=== PATIENT | female | born 1950 | race Caucasian/White ===

== ENCOUNTER 2016-08-11 21:37 | Inpatient (IN) ==
[2016-08-11 21:55] LABS: Basophils % 0.4 %; Eosinophils % 0.4 %; Hematocrit 37.7 % (35.3-44.9); Hemoglobin 12.1 g/dL (11.5-15.4); Immature Granulocytes % 0.5 % (0-4); Lymphocytes # 0.8 K/mcL (0.6-4.6); Mean Corpuscular HGB Conc 32.1 g/dL (31.6-35.5); Mean Corpuscular Hemoglobin 26.7 pg (28.0-33.3); Mean Corpuscular Volume 83.2 fL (83.0-100.0); Mean Platelet Volume 10.4 fL (9.4-12.4); Monocytes # 0.9 K/mcL (0.0-1.3); Monocytes % 8.2 %; Neutrophils # 8.7 K/mcL (1.6-8.9); Platelet Count 216 K/mcL (140-400); Red Blood Count 4.53 M/mcL (3.82-4.97); Red Cell Distribution Width 14.8 % (11.5-14.5); Segmented Neutrophils % 82.5 %
[2016-08-11 22:02] LABS: INR 1.2
[2016-08-11 22:04] LABS: Activated Partial Thrombo Time 30.9 Seconds (26.0-36.0)
[2016-08-11 22:14] LABS: Alanine Aminotransferase 9 Units/L (0-55); Albumin 3.2 g/dL (3.5-5.0); Albumin/Globulin Ratio 1.2 (1.1-2.2); Alkaline Phosphatase 77 Units/L (38-126); Aspartate Amino Transferase 14 Units/L (5-34); BUN/Creatinine Ratio 22 (6-26); Bilirubin,Total 0.7 mg/dL (0.2-1.2); Blood Urea Nitrogen 16 mg/dL (7-20); Calcium 9.3 mg/dL (8.6-10.8); Carbon Dioxide 28 mEq/L (19-29); Chloride 98 mEq/L (98-109); Globulin 2.6 g/dL (2.4-3.5); Glucose 120 mg/dL (70-99); Osmolality,Calculated 280 (280-300); Potassium 4.3 mEq/L (3.5-4.5); Sodium 134 mEq/L (136-145); Total Protein 5.8 g/dL (6.0-8.3); eGFR For African Americans > 60 (> 60); eGFR For Non-African Americans > 60 (> 60)
[2016-08-11] MEDS ORDERED: Ketorolac 30 MG/ML VIAL IVP ONE (22:44)
--- NOTE | 2016-08-11 22:56 | Emergency Department Note ---
Disposition Clinical Impression: Intertrochanteric fracture of left femur Qualifiers: Encounter type: initial encounter Fracture type: closed Qualified Code(s): S72.142A - Displaced intertrochanteric fracture of left femur, initial encounter for closed fracture Chronic respiratory failure Qualifiers: Respiratory failure complication: hypoxia and hypercapnia Qualified Code(s): J96.11 - Chronic respiratory failure with hypoxia; J96.12 - Chronic respiratory failure with hypercapnia Disposition: Admitted As Inpatient Condition: Fair Referrals: Franky Hackett MD [Primary Care Provider] - Forms: ED Satisfaction Letter Lower Extremity Injury HPI - General Chief Complaint: ED Extremity Injury, Lower Stated Complaint: left hip fx Time Seen by Provider: 08/11/16 21:38 Source: EMS Mode of arrival: EMS Limitations: language barrier Nursing Notes Reviewed: Yes Vital Signs Reviewed: Yes - History of Present Illness Pt Subjective Complaint: hip injury Injury location: Left hip Onset (ago): day(s) (1) Mechanism of Injury: fall Context: fall Place: home Pain Severity: moderate Improves with: nothing Worsens with: movement Associated symptoms: Reports: unable to bear weight - Related Data Home Medications Medication Instructions Recorded Confirmed Sertraline [Zoloft] 150 mg PO DAILY 12/07/15 04/11/16 Umeclidinium [place] [Incruse 1 puff IH DAILY 12/07/15 04/11/16 Ellipta] Albuterol Sulfate [Albuterol 1 puff IH Q4HR PRN 01/12/16 04/11/16 Inhaler] Acetylcysteine 600 mg PO BIDWM 02/04/16 04/11/16 [Q-Dzgfet-v-Cysteine] Aripiprazole [Abilify] 15 mg PO DAILY MDD Start 02-09-16. 02/04/16 04/11/16 Theophylline Anhydrous [Maximino-24] 100 mg PO DAILY 02/04/16 04/11/16 Previous Rx's Medication Instructions Recorded Budesonide/Formoterol 160/4.5 2 puff IH BIDR 30 Days 04/10/15 [Symbicort] Benztropine [Cogentin] 1 mg PO QID #120 tablet 05/22/15 Mirtazapine [Remeron] 15 mg PO HS #30 tablet 05/22/15 Montelukast [Singulair] 10 mg PO DAILY tablet 12/11/15 Omeprazole [PriLOSEC] 20 mg PO BIDAC capsule 12/11/15 Albuterol Neb [Proventil Neb] 2.5 mg IH Q2H PRN #0 inhsol 01/16/16 Ipratropium/Albuterol Neb [Duoneb] 3 ml IH [id number] inhsol 01/16/16 Aspirin 81 mg PO DAILY tab.chew 02/08/16 Atorvastatin [Lipitor] 40 mg PO HS #30 tablet 02/08/16 ClonazePAM [Klonopin] 1 mg PO TID PRN 30 Days 02/08/16 Metoprolol [Lopressor] 12.5 mg PO BID #30 tablet 02/08/16 Ipratropium/Albuterol Neb [Duoneb] 3 ml IH Q6HR PRN #30 vial.neb 03/29/16 Levofloxacin [Levaquin] 750 mg PO QDPC #3 tablet 04/18/16 Lisinopril [Zestril] 5 mg PO DAILY #30 tablet 04/18/16 OxyCODONE Immed Rel [Roxicodone 5 5 mg PO Q4HR PRN #30 tablet 04/18/16 MG] PredniSONE 40 mg PO AD #12 tablet 04/18/16 Allergies Allergy/AdvReac Type Severity Reaction Status Date / Time morphine Allergy Anaphylaxis Verified 01/12/16 11:22 All systems ED: reviewed and negative except as stated. 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 WORKER history: Reports: no SURVEY WORKER history, bilateral tubal ligation - Social History Smoking Status: Former smoker Smokeless Tobacco Status: No Alcohol use: Reports: none Drug use: Reports: none Physical Exam - General General appearance: alert, in no apparent distress - Head Head exam: atraumatic, normocephalic, normal inspection - Eye Eye exam: Present: normal appearance, PERRL, EOMI - ENT ENT exam: normal exam, normal oropharynx, mucous membranes moist - Neck Neck exam: Present: normal inspection, full ROM, trachea midline - Chest Chest inspection: Present: normal inspection, symmetric chest wall rise - Respiratory Respiratory exam: Present: prolonged expiratory phase. Absent: respiratory distress - Cardiovascular Cardiovascular exam: Present: regular rate, normal rhythm, normal heart sounds - Abdominal Exam Abdominal exam: Present: soft, Non-Tender. Absent: tenderness, distention, guarding, rebound, rigidity - Expanded Lower Extremity Exam Hip/Pelvis exam: Present: other (Patient tends to move left hip with significant pain) - Back Exam Back exam: Present: normal inspection, full ROM. Absent: tenderness - Neurological Exam Neurological exam: Present: alert, oriented X3 - Psychiatric Psychiatric exam: Present: normal affect, normal mood - Skin Skin exam: Present: warm Course Vital Signs Temperature 98.2 F 08/11/16 21:39 Pulse Rate 67 08/11/16 21:39 Respiratory Rate 16 08/11/16 21:39 Blood Pressure 111/48 08/11/16 21:39 O2 Sat by Pulse Oximetry 98 08/11/16 21:39 Temperature 98.2 F 08/11/16 21:39 Pulse Rate 67 08/11/16 21:39 Respiratory Rate 16 08/11/16 21:39 Blood Pressure 111/48 08/11/16 21:39 O2 Sat by Pulse Oximetry 98 08/11/16 21:39 Oxygen Delivery Oxygen Delivery Room Air Extremity Injury, Lower - Differential Diagnosis Likely: sprain/strain, acute internal derangement of knee, fracture, puncture wound - Medical Records Medical records reviewed: Yes I reviewed the patient's medical records. - Lab Data Lab results reviewed: Yes I reviewed the patient's lab results. Result diagrams: 08/11/16 21:52 08/11/16 21:52 Lab Results 08/11/16 08/11/16 08/11/16 Range/Units 21:52 21:52 21:52 WBC 10.5 (4.3-11.1) K/mcL RBC 4.53 (3.82-4.97) M/mcL Hgb 12.1 (11.5-15.4) g/dL Hct 37.7 (35.3-44.9) % MCV 83.2 (83.0-100.0) fL MCH 26.7 L (28.0-33.3) pg MCHC 32.1 (31.6-35.5) g/dL RDW 14.8 H (11.5-14.5) % Plt Count 216 (140-400) K/mcL MPV 10.4 (9.4-12.4) fL Immature Gran % 0.5 (0-4) % Seg Neutrophils % 82.5 % Lymphocytes % 8.0 % Monocytes % 8.2 % Eosinophils % 0.4 % Basophils % 0.4 % Neutrophils # 8.7 (1.6-8.9) K/mcL Lymphocytes # 0.8 (0.6-4.6) K/mcL Monocytes # 0.9 (0.0-1.3) K/mcL Eosinophils # 0.0 (0.0-0.6) K/mcL Basophils # 0.0 (0.0-0.2) K/mcL PT 13.0 H (9.4-12.1) Seconds INR 1.2 APTT 30.9 (26.0-36.0) Seconds Sodium 134 L (136-145) mEq/L Potassium 4.3 (3.5-4.5) mEq/L Chloride 98 (98-109) mEq/L Carbon Dioxide 28 (19-29) mEq/L BUN 16 (7-20) mg/dL Creatinine 0.72 (0.57-1.11) mg/dL Est GFR ( Amer) > 60 (> 60) Est GFR (Non-Af Amer) > 60 (> 60) BUN/Creatinine Ratio 22 (6-26) Glucose 120 H (70-99) mg/dL Calculated Osmolality 280 (280-300) Calcium 9.3 (8.6-10.8) mg/dL Total Bilirubin 0.7 (0.2-1.2) mg/dL AST 14 (5-34) Units/L ALT 9 (0-55) Units/L Alkaline Phosphatase 77 (38-126) Units/L Troponin I (0-0.03) ng/mL Serum Total Protein 5.8 L (6.0-8.3) g/dL Albumin 3.2 L (3.5-5.0) g/dL Globulin 2.6 (2.4-3.5) g/dL Albumin/Globulin Ratio 1.2 (1.1-2.2) Blood Type Antibody Screen 08/11/16 08/11/16 Range/Units 21:52 21:52 WBC (4.3-11.1) K/mcL RBC (3.82-4.97) M/mcL Hgb (11.5-15.4) g/dL Hct (35.3-44.9) % MCV (83.0-100.0) fL MCH (28.0-33.3) pg MCHC (31.6-35.5) g/dL RDW (11.5-14.5) % Plt Count (140-400) K/mcL MPV (9.4-12.4) fL Immature Gran % (0-4) % Seg Neutrophils % % Lymphocytes % % Monocytes % % Eosinophils % % Basophils % % Neutrophils # (1.6-8.9) K/mcL Lymphocytes # (0.6-4.6) K/mcL Monocytes # (0.0-1.3) K/mcL Eosinophils # (0.0-0.6) K/mcL Basophils # (0.0-0.2) K/mcL PT (9.4-12.1) Seconds INR APTT (26.0-36.0) Seconds Sodium (136-145) mEq/L Potassium (3.5-4.5) mEq/L Chloride (98-109) mEq/L Carbon Dioxide (19-29) mEq/L BUN (7-20) mg/dL Creatinine (0.57-1.11) mg/dL Est GFR ( Amer) (> 60) Est GFR (Non-Af Amer) (> 60) BUN/Creatinine Ratio (6-26) Glucose (70-99) mg/dL Calculated Osmolality (280-300) Calcium (8.6-10.8) mg/dL Total Bilirubin (0.2-1.2) mg/dL AST (5-34) Units/L ALT (0-55) Units/L Alkaline Phosphatase (38-126) Units/L Troponin I 0.01 (0-0.03) ng/mL Serum Total Protein (6.0-8.3) g/dL Albumin (3.5-5.0) g/dL Globulin (2.4-3.5) g/dL Albumin/Globulin Ratio (1.1-2.2) Blood Type O NEGATIVE Antibody Screen NEGATIVE - Radiology Data Radiology results reviewed: Yes I reviewed the patient's radiology results.
[2016-08-12] MEDS ORDERED: *HR* HYDROmorphone (PF) 1 MG/ML SYRINGE IVP STA (00:19)
[2016-08-12] MEDS ORDERED: 0.9 % Sodium Chloride 1,000 ML IV ONE (00:23)
[2016-08-12] MEDS ORDERED: 0.9 % Sodium Chloride 1,000 ML ONE (00:26)
[2016-08-12] MEDS ORDERED: Ketorolac 15 MG/ML VIAL IVP PRN (03:54)
[2016-08-12] MEDS ORDERED: Naloxone 0.4 MG/ML INJ IVP PRN (03:54)
[2016-08-12] MEDS ORDERED: Albuterol 2.5 MG/3 ML NEBULIZER IH PRN (03:59)
[2016-08-12] MEDS ORDERED: 0.9 % Sodium Chloride 1,000 ML IVC SCH (04:00)
--- NOTE | 2016-08-12 04:08 | Internal Med History&Physical ---
Date of Encounter: 08/12/16 Time of Encounter: 04:02 Assessment and Plan (1) Intertrochanteric fracture of left femur Current visit: Yes Status: Acute 1. Pain control. 2. Consult Orthopedics. 3. Recommend delaying surgery until cardiac evaluation is complete. Pt has ischemic changes on EKG. Unable to obtain any history from patient whatsoever. Qualifiers: Encounter type: initial encounter Fracture type: closed Qualified Code(s) : S72.142A - Displaced intertrochanteric fracture of left femur, initial encounter for closed fracture (2) COPD (chronic obstructive pulmonary disease) Current visit: Yes Status: Chronic 1. No acute process. 2. Aerosols PRN. 3. Oxygen as needed. Qualifiers: COPD type: emphysema Emphysema type: panlobular Qualified Code(s): J43.1 - Panlobular emphysema (3) Encephalopathy Current visit: Yes Status: Chronic 1. Based upon limited history and records, this appears chronic. 2. Resume home meds as appropriate once verified. 3. Monitor closely and minimize mind altering medications. (4) Steroid long-term use Current visit: Yes Status: Acute 1. Unable able to verify chronic home use, but her med list notes prednisone. 2. Will start stress dose steroids and continue for now in anticipation of surgery. 3. Will need to wean off hydrocortisone once acute injury, surgery, hospitalization stabilizes. (5) DVT prophylaxis Current visit: Yes Status: Acute 1. Heparin SQ. Internal Medicine - H&P: HPI Chief complaint: s/p fall Admitted From: Emergency Dept Plans for Post Hospital Care: Transfer Half-Way Care History of present illness: Ms. Guerra is a 66 year old female who presents to the ER tonight after having had a fall and sustaining hip injury. Workup in the ER revealed patient to have a hip fracture on the left. She was subsequently admitted to hospitalist service with an orthopedic consult. Upon my assessment of the patient, I am unable to obtain any history of patient whatsoever. She is alert, confused, disoriented, and a little agitated at times. Because of her encephalopathic state, no further history could be obtained. I reviewed her old records and ER records today. She does have a history of psychiatric disorder, schizophrenia, and I also suspect she has some underlying dementia. I also reviewed her EKG, which shows significant ST depression and T-wave inversion inferiorly and anterolaterally. Patient does not appear to be having any chest pain, dyspnea, or any anginal equivalent. I asked her multiple times if she was having chest pain or difficulty breathing, and she was unable to answer me and just stared blankly for the most part. I reviewed her CODE STATUS at her ECF which is confirmed DNR CC arrest. Past Med Surg Social Fam HX - Past Medical History Source: old records reviewed, nursing notes reviewed Medical history: arthritis, asthma, COPD, dementia, GERD, hypertension, osteoporosis Psychiatric history: anxiety, bipolar, depression, schizophrenia, previous psychiatric hospitalization - Past Surgical History Surgical History: cataract, cholecystectomy - Social History Smoking Status: Former smoker Smokeless Tobacco Status: No Alcohol use: none Drug use: none Current living situation: F - Family History Father History Unknown: Yes Living Status: Hx Family Respiratory Disorders: Yes Hx Family Cancer: Yes (Lymph node) Mother History Unknown: Yes Living Status: Hx Family Cancer: Yes (Colon cancer) Internal Medicine - H&P: Meds Budesonide/Formoterol 160/4.5 [Symbicort] 2 puff IH BIDR 30 Days 04/10/15 [Rx] Benztropine [Cogentin] 1 mg PO QID #120 tablet 05/22/15 [Rx] Mirtazapine [Remeron] 15 mg PO HS #30 tablet 05/22/15 [Rx] Sertraline [Zoloft] 150 mg PO DAILY 12/07/15 [History] Umeclidinium [place] [Incruse Ellipta] 1 puff IH DAILY 12/07/15 [History] Montelukast [Singulair] 10 mg PO DAILY tablet 12/11/15 [Rx] Omeprazole [PriLOSEC] 20 mg PO BIDAC capsule 12/11/15 [Rx] Albuterol Sulfate [Albuterol Inhaler] 1 puff IH Q4HR PRN 01/12/16 [History] Albuterol Neb [Proventil Neb] 2.5 mg IH Q2H PRN #0 inhsol 01/16/16 [Rx] Ipratropium/Albuterol Neb [Duoneb] 3 ml IH [id number] inhsol 01/16/16 [Rx] Acetylcysteine [K-Pjhlgg-f-Cysteine] 600 mg PO BIDWM 02/04/16 [History] Aripiprazole [Abilify] 15 mg PO DAILY MDD Start 02-09-16. 02/04/16 [History] Theophylline Anhydrous [Maximino-24] 100 mg PO DAILY 02/04/16 [History] Aspirin 81 mg PO DAILY tab.chew 02/08/16 [Rx] Atorvastatin [Lipitor] 40 mg PO HS #30 tablet 02/08/16 [Rx] ClonazePAM [Klonopin] 1 mg PO TID PRN 30 Days 02/08/16 [Rx] Metoprolol [Lopressor] 12.5 mg PO BID #30 tablet 02/08/16 [Rx] Ipratropium/Albuterol Neb [Duoneb] 3 ml IH Q6HR PRN #30 vial.neb 03/29/16 [Rx] Levofloxacin [Levaquin] 750 mg PO QDPC #3 tablet 04/18/16 [Rx] Lisinopril [Zestril] 5 mg PO DAILY #30 tablet 04/18/16 [Rx] OxyCODONE Immed Rel [Roxicodone 5 MG] 5 mg PO Q4HR PRN #30 tablet 04/18/16 [Rx] PredniSONE 40 mg PO AD #12 tablet 04/18/16 [Rx] Allergies morphine Allergy (Verified 01/12/16 11:22) Anaphylaxis ROS unobtainable: due to mental status - Constitutional Vitals: Temp Pulse Resp BP Pulse Ox 98.4 F 77 15 110/50 97 08/12/16 01:17 08/12/16 01:17 08/12/16 01:17 08/12/16 01:17 08/12/16 01:36 General appearance: Present: A&O X 0, disheveled. Absent: cooperative, answers questions appropriately - Head Head exam: Present: atraumatic, normal inspection - Expanded Head Exam Head exam expanded: Absent: abrasion, contusion, general tenderness, hematoma - Eye Eye exam: Present: EOMI, normal appearance, PERRL. Absent: scleral icterus Pupils: Present: normal accommodation - ENT ENT exam: Present: mucous membranes dry, normal exam, normal oropharynx - Neck Neck exam general surgery: Present: full ROM, supple. Absent: lymphadenopathy, thyromegaly - Expanded Neck Exam Neck exam: Absent: carotid bruit - Respiratory Respiratory exam: Present: prolonged expiratory phase, wheezes. Absent: rales, respiratory distress, rhonchi - Cardiovascular Cardiovascular exam: Present: RRR, +S1, +S2. Absent: systolic murmur - GI/Abdominal GI/Abdominal exam: Present: normal bowel sounds, soft. Absent: hepatomegaly, mass, splenomegaly - Extremities Exam Extremities exam: Present: warm. Absent: calf tenderness, joint swelling - Back Exam Back exam: Present: normal inspection. Absent: CVA tenderness (L), CVA tenderness (R) - Neurological Exam Neurological exam: Present: alert, strengths equal and symetr throughout. Absent: oriented X3 - Psychiatric Psychiatric exam: Present: agitated, flat affect. Absent: anxious, depressed - Skin Skin exam: Present: dry, warm Internal Med - H&P Results - Labs CBC & Chem 7: 08/11/16 21:52 08/11/16 21:52 - EKG Data -: EKG Interpreted by Myself EKG shows normal: sinus rhythm - EKG Data Prior EKG available for review: yes When compared to previous EKG: there are significant changes EKG comments: 08/12/16 04:12 ST-T depression and flipped T waves inferiorly and anterolaterally
[2016-08-12 05:06] LABS: Basophils # 0.1 K/mcL (0.0-0.2); Basophils % 0.6 %; Eosinophils # 0.2 K/mcL (0.0-0.6); Hematocrit 35.3 % (35.3-44.9); Hemoglobin 11.2 g/dL (11.5-15.4); Immature Granulocytes % 0.5 % (0-4); Lymphocytes # 1.3 K/mcL (0.6-4.6); Lymphocytes % 15.2 %; Mean Corpuscular HGB Conc 31.7 g/dL (31.6-35.5); Mean Corpuscular Volume 85.1 fL (83.0-100.0); Mean Platelet Volume 10.8 fL (9.4-12.4); Monocytes # 0.8 K/mcL (0.0-1.3); Neutrophils # 6.2 K/mcL (1.6-8.9); Platelet Count 159 K/mcL (140-400); Red Blood Count 4.15 M/mcL (3.82-4.97); Red Cell Distribution Width 14.8 % (11.5-14.5); Segmented Neutrophils % 72.7 %
[2016-08-12 05:26] LABS: Alanine Aminotransferase 7 Units/L (0-55); Albumin 2.9 g/dL (3.5-5.0); Alkaline Phosphatase 73 Units/L (38-126); Aspartate Amino Transferase 14 Units/L (5-34); BUN/Creatinine Ratio 28 (6-26); Bilirubin,Total 0.6 mg/dL (0.2-1.2); Blood Urea Nitrogen 17 mg/dL (7-20); Calcium 9.2 mg/dL (8.6-10.8); Carbon Dioxide 21 mEq/L (19-29); Chloride 103 mEq/L (98-109); Globulin 2.9 g/dL (2.4-3.5); Glucose 92 mg/dL (70-99); Magnesium 1.5 mg/dL (1.6-2.6); Osmolality,Calculated 279 (280-300); Potassium 4.2 mEq/L (3.5-4.5); Sodium 134 mEq/L (136-145); Total Protein 5.8 g/dL (6.0-8.3); eGFR For African Americans > 60 (> 60); eGFR For Non-African Americans > 60 (> 60)
--- NOTE | 2016-08-12 06:52 | Orthopedic Consult Note ---
Date of Encounter: 08/12/16 Time of Encounter: 06:50 Assessment and Plan (1) Hip fracture, left Current Visit: Yes Status: Acute Myra is a 66 year old female with who sustained a left displaced intertrochanteric hip fracture. She was admitted to the hospitalist. At this point I was not able to communicate with family members or a chamber of commerce division manager though my recommendation will be for reduction and internal fixation of the hip in order to stabilize the proximal femur and provide pain control to help facilitate nursing care. The patient will require cardiac clearance and I spoke with the hospitalist who will place an order for a consult. I will be in touch with the power of criminal defense attorney later today to address the orthopedic issues. Keep her nothing by mouth at this point. Qualifiers: Qualified Code(s): S72.002A - Fracture of unspecified part of neck of left femur, initial encounter for closed fracture History of Present Illness HPI: Ms. Guerra is a 66 year old female who was admitted last night to the hospitalist after a fall. Sustained a left hip fracture. History is significantly limited due to her mental status which is confused. There are no caretakers or family members at the bedside. The patient does not have any general complaints. I could not obtain any history from the patient directly and therefore gleaned her history from the chart. She apparently does take prednisone and was started on stress dose by the hospitalist. She also had some ischemic changes on her EKG and hospitalist and ordered an echo. Past Med Surg Social Fam HX - Past Medical History Medical history: arthritis, asthma, COPD, dementia, GERD, hypertension, osteoporosis Psychiatric history: anxiety, bipolar, depression, schizophrenia, previous psychiatric hospitalization - Past Surgical History Surgical History: cataract, cholecystectomy - Social History Smoking Status: Former smoker Smokeless Tobacco Status: No Alcohol use: none Drug use: none - Family History Father History Unknown: Yes Living Status: Hx Family Respiratory Disorders: Yes Hx Family Cancer: Yes (Lymph node) Mother History Unknown: Yes Living Status: Hx Family Cancer: Yes (Colon cancer) Medications and Allergies Budesonide/Formoterol 160/4.5 [Symbicort] 2 puff IH BIDR 30 Days 04/10/15 [Rx] Benztropine [Cogentin] 1 mg PO QID #120 tablet 05/22/15 [Rx] Mirtazapine [Remeron] 15 mg PO HS #30 tablet 05/22/15 [Rx] Sertraline [Zoloft] 150 mg PO DAILY 12/07/15 [History] Umeclidinium [place] [Incruse Ellipta] 1 puff IH DAILY 12/07/15 [History] Montelukast [Singulair] 10 mg PO DAILY tablet 12/11/15 [Rx] Omeprazole [PriLOSEC] 20 mg PO BIDAC capsule 12/11/15 [Rx] Albuterol Sulfate [Albuterol Inhaler] 1 puff IH Q4HR PRN 01/12/16 [History] Albuterol Neb [Proventil Neb] 2.5 mg IH Q2H PRN #0 inhsol 01/16/16 [Rx] Ipratropium/Albuterol Neb [Duoneb] 3 ml IH [id number] inhsol 01/16/16 [Rx] Acetylcysteine [V-Enpjmk-a-Cysteine] 600 mg PO BIDWM 02/04/16 [History] Aripiprazole [Abilify] 15 mg PO DAILY MDD Start 02-09-16. 02/04/16 [History] Theophylline Anhydrous [Maximino-24] 100 mg PO DAILY 02/04/16 [History] Aspirin 81 mg PO DAILY tab.chew 02/08/16 [Rx] Atorvastatin [Lipitor] 40 mg PO HS #30 tablet 02/08/16 [Rx] ClonazePAM [Klonopin] 1 mg PO TID PRN 30 Days 02/08/16 [Rx] Metoprolol [Lopressor] 12.5 mg PO BID #30 tablet 02/08/16 [Rx] Ipratropium/Albuterol Neb [Duoneb] 3 ml IH Q6HR PRN #30 vial.neb 03/29/16 [Rx] Levofloxacin [Levaquin] 750 mg PO QDPC #3 tablet 04/18/16 [Rx] Lisinopril [Zestril] 5 mg PO DAILY #30 tablet 04/18/16 [Rx] OxyCODONE Immed Rel [Roxicodone 5 MG] 5 mg PO Q4HR PRN #30 tablet 04/18/16 [Rx] PredniSONE 40 mg PO AD #12 tablet 04/18/16 [Rx] Allergies morphine Allergy (Verified 01/12/16 11:22) Anaphylaxis ROS unobtainable: due to mental status Physical Exam - Constitutional Vitals: Temp Pulse Resp BP Pulse Ox 97.8 F 67 16 102/70 99 08/12/16 04:55 08/12/16 04:55 08/12/16 04:55 08/12/16 04:55 08/12/16 04:55 Constitutional -Vitals reviewed -The patient is well developed and well nourished. -Mood is pleasant. -The patient is well groomed. Psychiatric -The patient is fully alert and oriented x 3. Respiratory: -Respiratory effort normal Abdomen: -Soft abdomen -Non tender -Non distended: Left upper extremity: -No deformities. The overlying skin is intact. No obvious signs of acute trauma. -No tenderness to palpation throughout. -No significant pain with passive motion of the shoulder, elbow, wrist, and fingers within the limits of the bed. -Unable to perform a neurologic exam due to her mental status. -Radial pulse is present; Fingers have good capillary refill. Right upper extremity: -No deformities. The overlying skin is intact. No obvious signs of acute trauma. -No tenderness to palpation throughout. -No significant pain with passive motion of the shoulder, elbow, wrist, and fingers within the limits of the bed. -Unable to perform a neurologic exam due to her mental status. -Radial pulse is present; Fingers have good capillary refill. Left lower extremity: -Shortened. The overlying skin is intact. -Tenderness in the proximal thigh region. -Pain with any movement of the left lower extremity localized to the groin. -Unable to perform a neurologic exam due to her mental status. -Toes have good capillary refill. Right lower extremity: -No deformities. The overlying skin is intact. No obvious signs of acute trauma. -No tenderness to palpation throughout. -No pain with passive motion of the hip, knee, ankle, and toes within the limits of the bed. -No pain with axial loading of the thigh. -Unable to perform a neurologic exam due to her mental status. -Toes have good capillary refill. Results - Labs Result Diagrams: 08/12/16 04:46 08/12/16 04:46 Labs: Abnormal lab results Hgb 11.2 g/dL (11.5-15.4) L 08/12/16 04:46 MCH 27.0 pg (28.0-33.3) L 08/12/16 04:46 RDW 14.8 % (11.5-14.5) H 08/12/16 04:46 PT 13.0 Seconds (9.4-12.1) H 08/11/16 21:52 Sodium 134 mEq/L (136-145) L 08/12/16 04:46 BUN/Creatinine Ratio 28 (6-26) H 08/12/16 04:46 Calculated Osmolality 279 (280-300) L 08/12/16 04:46 Magnesium 1.5 mg/dL (1.6-2.6) L 08/12/16 04:46 Serum Total Protein 5.8 g/dL (6.0-8.3) L 08/12/16 04:46 Albumin 2.9 g/dL (3.5-5.0) L 08/12/16 04:46 Albumin/Globulin Ratio 1.0 (1.1-2.2) L 08/12/16 04:46 H & H 08/12/16 Range/Units 04:46 Hgb 11.2 L (11.5-15.4) g/dL Hct 35.3 (35.3-44.9) % All other labs normal. - Diagnostic results Hip x-ray: image reviewed (Left displaced proximal femoral fracture, extracapsular. ) Consult Discharge Plan - Plan Referrals: Franky Hackett MD [Primary Care Provider] -
[2016-08-12] MEDS ORDERED: *HR* Heparin 5,000 UNIT/ML VIAL SQ SCH (07:00)
[2016-08-12] MEDS: Budesonide/Formoterol 160/4.5 MDI IH SCH ×2 (08:00→19:48)
[2016-08-12] MEDS: Hydrocortisone Sodium Succ 100 MG/2 ML VIAL IVP SCH ×3 (08:55→23:28)
[2016-08-12] MEDS ORDERED: Aspirin 81 MG TAB.CHEW PO SCH (09:00)
--- NOTE | 2016-08-12 10:00 | Cardiology Consult Note ---
<Oir Hodge R - Last Filed: 08/12/16 10:13> Date of Encounter: 08/12/16 Time of Encounter: 09:57 Assessment and Plan (1) Pre-operative cardiovascular examination Current Visit: Yes Status: Acute Pre-operative cardiovascular risk stratification for surgery of left displaced intertrochanteric hip fracture. EKG reviewed--significant changes noted compared to prior. Diffuse ST depression and inversion noted. Pt is a poor historian, confused. Cannot risk stratify pt until echo is obtained given these new concerning EKG changes. Will evaluate for any new wall motion abnormalities. Previous echo 01/2016 showed preserved EF without wall motion abnormalities. Will continue to follow and make recommendations/risk stratify once echo results. (2) Abnormal EKG Current Visit: Yes Status: Acute Diffuse ST depression and T wave inversion noted. Pt denies chest pain. Troponins negative x 2. Check echo to evaluate for any wall motion abnormalities. Further recommendations to follow. Discussion w patient/family: The assessment and plan as outlined above was discussed with the patient and/or family members who expressed understanding and agreement. All questions were answered. Thank you for involving us in the care of your patient. Please call with any questions. I will discuss all the above with Dr. Romero and make changes as necessary. History of Present Illness Consult date: 08/12/16 Requesting physician: Lonny Kirkpatrick Consult reason: pre-op, EKG changes Chief complaint: fall, hip pain History of present illness: Ms. Guerra is a 66 year old female with PMH of COPD, asthma, GERD, HTN, anxiety , bipolar, schizophrenia that presented to the ER after having had a fall and sustaining hip injury. Workup in the ER revealed patient had a left hip fx. She was subsequently admitted to hospitalist service with an orthopedic consult. EKG shows significant ST depression and T-wave inversion inferiorly and anterolaterally compared to prior. Patient does not appear to be having any chest pain, dyspnea, or any anginal equivalent. CODE STATUS at her ECF is DNR CC arrest. Troponins have been negative x 2. Echo 01/2016 showed preserved EF of 60%, moderate diastolic dysfunction. Past Med Surg Social Fam HX - Past Medical History Medical history: arthritis, asthma, COPD, dementia, GERD, hypertension, osteoporosis Psychiatric history: anxiety, bipolar, depression, schizophrenia, previous psychiatric hospitalization - Past Surgical History Surgical History: cataract, cholecystectomy - Social History Smoking Status: Former smoker Smokeless Tobacco Status: No Alcohol use: none Drug use: none - Family History Father History Unknown: Yes Living Status: Hx Family Respiratory Disorders: Yes Hx Family Cancer: Yes (Lymph node) Mother History Unknown: Yes Living Status: Hx Family Cancer: Yes (Colon cancer) Medications and Allergies Budesonide/Formoterol 160/4.5 [Symbicort] 2 puff IH BIDR 30 Days 04/10/15 [Rx] Benztropine [Cogentin] 1 mg PO QID #120 tablet 05/22/15 [Rx] Mirtazapine [Remeron] 15 mg PO HS #30 tablet 05/22/15 [Rx] Sertraline [Zoloft] 150 mg PO DAILY 12/07/15 [History] Umeclidinium [place] [Incruse Ellipta] 62.5 mcg IH DAILY 12/07/15 [History] Montelukast [Singulair] 10 mg PO DAILY tablet 12/11/15 [Rx] Omeprazole [PriLOSEC] 20 mg PO BIDAC capsule 12/11/15 [Rx] Albuterol Sulfate [Albuterol Inhaler] 1 puff IH Q4HR PRN 01/12/16 [History] Albuterol Neb [Proventil Neb] 2.5 mg IH Q2H PRN #0 inhsol 01/16/16 [Rx] Acetylcysteine [W-Mmnlac-z-Cysteine] 600 mg PO BIDWM 02/04/16 [History] Aripiprazole [Abilify] 15 mg PO DAILY MDD Start 02-09-16. 02/04/16 [History] Aspirin 81 mg PO DAILY tab.chew 02/08/16 [Rx] Atorvastatin [Lipitor] 40 mg PO HS #30 tablet 02/08/16 [Rx] ClonazePAM [Klonopin] 1 mg PO TID PRN 30 Days 02/08/16 [Rx] Metoprolol [Lopressor] 12.5 mg PO BID #30 tablet 02/08/16 [Rx] Ipratropium/Albuterol Neb [Duoneb] 3 ml IH Q6HR PRN #30 vial.neb 03/29/16 [Rx] OxyCODONE Immed Rel [Roxicodone 5 MG] 5 mg PO Q4HR PRN #30 tablet 04/18/16 [Rx] Guaifenesin [Mucinex] 1,200 mg PO BID 08/12/16 [History] Lisinopril [Lisinopril] 2.5 mg PO DAILY 08/12/16 [History] Magnesium Hydroxide [Milk of Magnesia] 30 ml PO Q4H PRN 08/12/16 [History] PredniSONE [Spike] 5 mg PO DAILY 08/12/16 [History] Theophylline Anhydrous [Maximino-24] 300 mg PO DAILY 08/12/16 [History] Allergies morphine Allergy (Verified 01/12/16 11:22) Anaphylaxis All Systems Review: A 10-system review of systems was performed and is negative for pertinent findings except as documented above in the HPI. - Constitutional Constitutional: frequent falls - Cardiovascular Cardiovascular: dyspnea on exertion - Respiratory Respiratory: dyspnea Physical Examination Vital Signs, Last 4 Hours Temp Pulse Resp BP Pulse Ox 08/12/16 08:07 16 105/59 100 08/12/16 07:00 98.7 F 75 16 105/59 100 Vital Signs Temp Pulse Resp BP Pulse Ox 08/12/16 08:07 16 105/59 100 08/12/16 07:00 98.7 F 75 16 105/59 100 08/12/16 04:55 97.8 F 67 16 102/70 99 08/12/16 01:36 97 08/12/16 01:17 98.4 F 77 15 110/50 100 08/12/16 00:50 16 117/63 08/12/16 00:45 67 16 117/63 100 08/12/16 00:15 71 16 99/59 97 08/11/16 23:08 71 16 120/59 97 08/11/16 21:39 98.2 F 67 16 111/48 98 Intake and Output 08/11/16 08/12/16 08/12/16 23:59 07:59 15:59 Other: Weight 45.359 kg General: Conversant, No Apparent Distress HEENT: Atraumatic, Normocephaly, Mucus Membranes Moist Neck: No JVD, Normal carotid pulses Cardiac: Reg Rate and Rhythm, Normal S1 and S2, No Murmur Lungs: Normal Breath Sounds, No Wheeze, Rales, Rhonchi Neuro: Alert and responsive, No focal deficits noted Abdomen: Soft, Non-Tender Skin: No rashes noted on visualized skin Musculoskeletal: No Chest Wall Tenderness Extremities: No Clubbing, No Cyanosis, No Edema, Normal Pulses Results 08/12/16 04:46 08/12/16 04:46 Lab Results 08/12/16 08/12/16 08/12/16 04:46 04:46 04:46 WBC 8.5 Hgb 11.2 L Hct 35.3 Plt Count 159 Sodium 134 L Potassium 4.2 Chloride 103 Carbon Dioxide 21 BUN 17 Creatinine 0.61 Glucose 92 Calcium 9.2 Magnesium 1.5 L Total Bilirubin 0.6 AST 14 ALT 7 Alkaline Phosphatase 73 Troponin I 0.01 Short CBC 08/12/16 08/11/16 Range/Units 04:46 21:52 WBC 8.5 10.5 (4.3-11.1) K/mcL Hgb 11.2 L 12.1 (11.5-15.4) g/dL Hct 35.3 37.7 (35.3-44.9) % Plt Count 159 216 (140-400) K/mcL Neutrophils # 6.2 8.7 (1.6-8.9) K/mcL BMP 08/12/16 08/11/16 Range/Units 04:46 21:52 Sodium 134 L 134 L (136-145) mEq/L Potassium 4.2 4.3 (3.5-4.5) mEq/L Chloride 103 98 (98-109) mEq/L Carbon Dioxide 21 28 (19-29) mEq/L BUN 17 16 (7-20) mg/dL Creatinine 0.61 0.72 (0.57-1.11) mg/dL Glucose 92 120 H (70-99) mg/dL Calcium 9.2 9.3 (8.6-10.8) mg/dL Cardiac Enzymes 08/12/16 08/11/16 Range/Units 04:46 21:52 Troponin I 0.01 0.01 (0-0.03) ng/mL Liver Function 08/12/16 08/11/16 Range/Units 04:46 21:52 Total Bilirubin 0.6 0.7 (0.2-1.2) mg/dL AST 14 14 (5-34) Units/L ALT 7 9 (0-55) Units/L Alkaline Phosphatase 73 77 (38-126) Units/L Albumin 2.9 L 3.2 L (3.5-5.0) g/dL Impressions Chest X-Ray 08/11/16 21:39 IMPRESSION: No acute abnormality. D/ / Roosevelt Rider MD / Roosevelt Rider MD Interpreting Provider: Roosevelt Rider MD Hip X-Ray 08/11/16 21:58 IMPRESSION: Intertrochanteric left proximal femur fracture. D/ / 08/11/2016 22:52:26 Roosevelt Rider MD / [facility] Interpreting Provider: Roosevelt Rider MD Femur X-Ray 08/11/16 23:01 IMPRESSION: 1. Acute mildly displaced left intertrochanteric fracture. 2. The left femur diaphysis and distal metaphysis demonstrate no fracture. D/ / 08/12/2016 06:21:43 Hay Escalante MD / [facility] Interpreting Provider: Hay Escalante MD Active Medications Acetaminophen (Tylenol) 650 mg PO Q6HR PRN PRN Reason: Mild Pain (1-3) Stop: 02/11/17 03:55 Albuterol Sulfate (Proventil Neb) 2.5 mg IH Q2H PRN; Protocol PRN Reason: Dyspnea Stop: 02/11/17 04:00 Aspirin (Aspirin) 81 mg PO DAILY [facility] Stop: 02/11/17 09:01 Last Admin: 08/12/16 08:53 Dose: Not Given Budesonide/Formoterol Fumarate (Symbicort) 2 puff IH BIDR JOSELYN PRN Reason: Protocol Stop: 02/11/17 10:01 Last Admin: 08/12/16 08:00 Dose: 2 puff Docusate Sodium (Colace) 100 mg PO BID PRN PRN Reason: Constipation Stop: 02/11/17 03:55 Heparin Sodium (Porcine) (Heparin) 5,000 unit SQ Q12HCO [facility] Stop: 02/11/17 07:01 Last Admin: 08/12/16 06:00 Dose: 5,000 unit Hydrocortisone Sodium Succinate (Solu-Cortef) 100 mg IVP Q8HR JOSELYN Stop: 02/11/17 08:01 Last Admin: 08/12/16 08:55 Dose: 100 mg Hydromorphone HCl (Dilaudid) 0.5 mg IVP Q4HR PRN PRN Reason: Severe Pain (7-10) Stop: 02/11/17 03:55 Sodium Chloride (0.9 % Sodium Chloride) 1,000 mls @ 100 mls/hr IVC .Q10H JOSELYN Stop: 02/11/17 04:01 Last Admin: 08/12/16 04:59 Dose: 100 mls/hr Ketorolac Tromethamine (Toradol) 15 mg IVP Q6HR PRN PRN Reason: Moderate Pain (4-6) Stop: 08/17/16 03:55 Naloxone HCl (Narcan) 0.4 mg IVP Q2MIN PRN PRN Reason: Opioid Reversal Stop: 02/11/17 03:55 Thiamine HCl (Vitamin B-1) 200 mg PO DAILY [facility] Stop: 02/11/17 09:31 - EKG Interpretation EKG results cardiology: personally reviewed (T waves inversions and depressions noted throughout EKG.), other (24 hour tele AVG HR 72) Consult Discharge Plan - Plan Referrals: Franky Hackett MD [Primary Care Provider] - <Suhail Romero G - Last Filed: 08/12/16 12:22> Date of Encounter: 08/12/16 Assessment and Plan Discussion w patient/family: The assessment and plan as outlined above was discussed with the patient and/or family members who expressed understanding and agreement. All questions were answered. Thank you for involving us in the care of your patient. Please call with any questions. History of Present Illness History of present illness: Ms. Guerra is a 66 year old female All Systems Review: A 10-system review of systems was performed and is negative for pertinent findings except as documented above in the HPI. Physical Examination Vital Signs, Last 4 Hours Temp Pulse Resp BP Pulse Ox 08/12/16 10:38 98.8 F 81 16 95/58 98 Results 08/12/16 04:46 08/12/16 04:46 Lab Results 08/12/16 08/12/16 08/12/16 04:46 04:46 04:46 WBC 8.5 Hgb 11.2 L Hct 35.3 Plt Count 159 Sodium 134 L Potassium 4.2 Chloride 103 Carbon Dioxide 21 BUN 17 Creatinine 0.61 Glucose 92 Calcium 9.2 Magnesium 1.5 L Total Bilirubin 0.6 AST 14 ALT 7 Alkaline Phosphatase 73 Troponin I 0.01 08/12/16 10:45 WBC Hgb Hct Plt Count Sodium Potassium Chloride Carbon Dioxide BUN Creatinine Glucose Calcium Magnesium Total Bilirubin AST ALT Alkaline Phosphatase Troponin I 0.01 - Attending Attestation I examined this patient and my medical decision-making was reviewed with the CHUTE BUILDER/PA/Advanced Practice Nurse/Resident Physician. I agree with the documented findings, disposition and treatment plan as described except to the extent set forth below. Asked to see pt for pre op clearance for fractured hip Pt not very cooperative Denies any cp "nothing wrong with my heart" no prior history of cardiac problems VSS JVD: 6-7 cm Chest: clear CVS : no s3 EKG : diffuse EKG changes with T wave inversion cardiac enzymes neg will check echo EKG suggest possible underlying ischemia no symptoms if ECHO looks ok with no wall motion abnormality then will clear for semi urgent hip surgery understanding that there is moderate CV risk d/w patient Pt does not want hip surgery Thanks
[2016-08-12 10:08] LABS: Phosphorous 3.3 mg/dL (2.3-4.7)
[2016-08-12] MEDS ORDERED: Magnesium Sulfate 2 GM in D5% in Water 100 ML IV ONE (10:29)
--- NOTE | 2016-08-12 10:29 | Event Note ---
Date of Encounter: 08/12/16 Time of Encounter: 10:00 Patient seen and examined, history of chronic respiratory failure oxygen dependent on 3 L. Patient denies any chest pain. Vital signs stable. Appreciate cardiology input. May need repeat cardiac echo. May need to transfer to 2 N. or ICU after surgery. Close monitoring of electrolytes. Glucose monitoring for any EKG changes. Patient had abdominal discomfort. Check kub. Replace magnesium
[2016-08-12] MEDS: Thiamine (B-1) 100 MG TABLET PO SCH (11:59)
--- NOTE | 2016-08-12 12:41 | ECHO - Doppler Report ---
Echocardiogram Name: Myra Guerra Date of Study: 08/12/2016 Date: 1950 Ht: 60.0 in Medical Record#: [id number] Age: 66 Wt: 100.0 lb Gender: Female BSA: 1.39 Order #: [id number] Location: [facility] Room #: 3NE20 Reading Physician: Zak Stearns DO, PATTI, LILLY BERG Statistics Tutor: Ramez Monge RN Ordering Physician: Ori Hodge CNP Primary Physician: Franky Hackett MD Indications: Preoperative Cardiovascular Examination, EKG Changes Impressions: LVEF 60-65%. Normal LV chamber size, wall thickness and function. Mild left ventricular diastolic dysfunction. Normal right ventricular structure and function. Possible PFO with left to right shunt with color Doppler. No evidence of pulmonary hypertension. There is a small anterior pericardial effusion present. There is no echocardiographic evidence of tamponade. Recommend a repeat limited study in a few weeks to evaluate pericardial effusion. Agitated saline can be administered to evaluate interatrial septum at that time. Left Ventricular Wall Motion: Rest Echo Findings All wall segments showed normal motion. Findings: Study Quality * Technically adequate exam. ECG Findings * Normal sinus rhythm. Left Ventricle * LVEF 60-65%. * Normal LV chamber size, wall thickness and function. * Mild left ventricular diastolic dysfunction. Right Ventricle * Normal right ventricular structure and function. Left Atrium * Mild to moderately dilated left atrium. Right Atrium * Normal right atrial size. Interatrial Septum * Possible PFO with left to right shunt with color Doppler. Aortic Valve * Trileaflet aortic valve. * Mildly sclerotic aortic valve leaflets. * No aortic stenosis. * No aortic regurgitation. Mitral Valve * Normal mitral valve structure and function. * No mitral regurgitation. * No mitral stenosis. Tricuspid Valve * Normal tricuspid valve structure and function. * Trace tricuspid regurgitation. * No evidence of pulmonary hypertension. Pulmonic Valve * Normal pulmonic valve structure and function. * No pulmonic regurgitation. Aorta * Normally sized aortic root. Pericardium * There is a small anterior pericardial effusion present. * There is no echocardiographic evidence of tamponade. IVC * Normal IVC dimensions and inspiratory collapse. Pulmonary Artery * Normal visualized portions of the main pulmonary artery. History 02/05/2016 a Previous Echo was performed. Measurements: BP: 95/ 58 2D Normal Values RVIDd: 2.40 cm <2.7 cm IVSd: .70 cm 0.6 - 1.0 cm LVIDd: 4.50 cm 3.7 - 5.6 cm LVPWd: .70 cm 0.6 - 1.1 cm LVIDs: 2.70 cm 1.5 - 3.6 cm LA: 3.00 cm 2.0 - 4.0cm %FS: 40.00 cm >25 % LVOT Diam: 1.60 cm LA volume: 66 Mitral Valve Peak E:.89 m/sec Peak A:.78 m/sec E/A Ratio:1.1 Peak E' Lat Kalia:7.6 cm/s Peak E' Med Kalia:8.77 cm/s E/E' Lat Ratio:11.8 E/E' Med Ratio:10.2 Tricuspid Valve TV Regurg Peak Grad: 25.00mmHg TV Regurg Peak Kalia: 2.51m/sec Updated by Zak Stearns DO, PATTI, LILLY BERG on 08/12/2016 12:36:14 PM electronically signed on 08/12/2016 12:38:07 PM with status of Final Wall Motion Carlin: 1=Normal, 2=Hypokinesis, 3=Akinesis, 4=Dyskinesis, 5=Aneurysmal, 6=Hyperkinetic, X=Not Visualized (Blank)=Missing
--- NOTE | 2016-08-12 12:52 | Event Note ---
Date of Encounter: 08/12/16 Time of Encounter: 12:50 - Cardiology Event Note Echo resulted--EF preserved 60-65%, no wall motion abnormalities noted. Mild diastolic dysfunction. There was a possible PFO left to right shunting with color doppler. Small anterior pericardial effusion without evidence of tamponade. Recommend limited echo in 2-3 weeks to re-evaluate pericardial effusion. No further cardiac work-up necessary. Pt is acceptable moderate risk from a cardiac standpoint to proceed with hip surgery. Cardiology signing off. Reconsult PRN.
[2016-08-12] MEDS ORDERED: 0.9 % Sodium Chloride 250 ML IVC SCH (15:01)
[2016-08-12] MEDS ORDERED: 0.9 % Sodium Chloride 250 ML ONE (15:11)
[2016-08-12] MEDS: 0.9 % Sodium Chloride 250 ML IVC ONE ×2 (15:13→15:48)
--- NOTE | 2016-08-12 15:23 | Anesthesia Evaluation PreOp ---
Date of Encounter: 08/12/16 Time of Encounter: 15:21 - Past History Planned Operation: L-Hip IM Nail re: intertrochanteric femur Fx Cardiac History: HTN (maintained on Lisinopril), Other (ECHO 08/11/16 - LVEF 60- 65%, Normal LV size/Fx, Mild LV diastolic dysfx, No evidence of PulmHtn, No SWMA ) Pulmonary History: Asthma, COPD (steroid dependent ?? maintained on Symbicort, Singulair, Albuterol, Proventil, DuoNeb, Theophylline, Incruse Ellipta, Prednisone) EXPRESSIVE ART THERAPIST History: Other (Psychiatric disorder/BiPolar/Schizophrenia/Dementia maintained on Clonazepam, Cogentin, Remeron, Abilify. Encephalopathic upon Admission [per H&P]) Other Medical History: GERD (maintained on Omeprazole), Other (Osteoporosis) Anesthesia History: Past Anesthesia (Cataracts, Cholecystectomy) Alcohol Use: none Drug use: none Medications and Allergies Budesonide/Formoterol 160/4.5 [Symbicort] 2 puff IH BIDR 30 Days 04/10/15 [Rx] Benztropine [Cogentin] 1 mg PO QID #120 tablet 05/22/15 [Rx] Mirtazapine [Remeron] 15 mg PO HS #30 tablet 05/22/15 [Rx] Sertraline [Zoloft] 150 mg PO DAILY 12/07/15 [History] Umeclidinium [place] [Incruse Ellipta] 62.5 mcg IH DAILY 12/07/15 [History] Montelukast [Singulair] 10 mg PO DAILY tablet 12/11/15 [Rx] Omeprazole [PriLOSEC] 20 mg PO BIDAC capsule 12/11/15 [Rx] Albuterol Sulfate [Albuterol Inhaler] 1 puff IH Q4HR PRN 01/12/16 [History] Albuterol Neb [Proventil Neb] 2.5 mg IH Q2H PRN #0 inhsol 01/16/16 [Rx] Acetylcysteine [O-Bevcci-a-Cysteine] 600 mg PO BIDWM 02/04/16 [History] Aripiprazole [Abilify] 15 mg PO DAILY MDD Start 02-09-16. 02/04/16 [History] Aspirin 81 mg PO DAILY tab.chew 02/08/16 [Rx] Atorvastatin [Lipitor] 40 mg PO HS #30 tablet 02/08/16 [Rx] ClonazePAM [Klonopin] 1 mg PO TID PRN 30 Days 02/08/16 [Rx] Metoprolol [Lopressor] 12.5 mg PO BID #30 tablet 02/08/16 [Rx] Ipratropium/Albuterol Neb [Duoneb] 3 ml IH Q6HR PRN #30 vial.neb 03/29/16 [Rx] OxyCODONE Immed Rel [Roxicodone 5 MG] 5 mg PO Q4HR PRN #30 tablet 04/18/16 [Rx] Guaifenesin [Mucinex] 1,200 mg PO BID 08/12/16 [History] Lisinopril [Lisinopril] 2.5 mg PO DAILY 08/12/16 [History] Magnesium Hydroxide [Milk of Magnesia] 30 ml PO Q4H PRN 08/12/16 [History] PredniSONE [Spike] 5 mg PO DAILY 08/12/16 [History] Theophylline Anhydrous [Maximino-24] 300 mg PO DAILY 08/12/16 [History] Allergies morphine Allergy (Verified 01/12/16 11:22) Anaphylaxis - Meds/Allergy Pre-op Review Medications Reviewed: Yes Allergies Reviewed: Yes Beta Blockers on Current Med List: Yes (Metoprolol) If Beta Blockers taken, Date/Time (Last Dose taken): held 08/12/16 for Hypotension Anesthesia Results - Labs 08/12/16 04:46 08/12/16 04:46 Laboratory Results Laboratory Tests 08/11/16 08/12/16 21:52 04:46 PT 13.0 H INR 1.2 APTT 30.9 Sodium 134 L Potassium 4.2 Chloride 103 Carbon Dioxide 21 BUN 17 Creatinine 0.61 Est GFR (Non-Af Amer) > 60 BUN/Creatinine Ratio 28 H Glucose 92 AST 14 ALT 7 Alkaline Phosphatase 73 Serum Total Protein 5.8 L Albumin 2.9 L Globulin 2.9 Albumin/Globulin Ratio 1.0 L Impressions Chest X-Ray 08/11/16 21:39 IMPRESSION: No acute abnormality. D/ / Roosevelt Rider MD / Roosevelt Rider MD Interpreting Provider: Roosevelt Rider MD Hip X-Ray 08/11/16 21:58 IMPRESSION: Intertrochanteric left proximal femur fracture. D/ / 08/11/2016 22:52:26 Roosevelt Rider MD / [facility] Interpreting Provider: Roosevelt Rider MD Femur X-Ray 08/11/16 23:01 IMPRESSION: 1. Acute mildly displaced left intertrochanteric fracture. 2. The left femur diaphysis and distal metaphysis demonstrate no fracture. D/ / 08/12/2016 06:21:43 Hay Escalante MD / [facility] Interpreting Provider: Hya Escalante MD - Imaging EKG: image reviewed (Admisson EKG not present in EMR, but per Cardiology noted to have diffuse ST depression and T wave inversion. Troponins NEGATIVE x 2) Anesthesia Exam Vital Signs Temp Pulse Resp BP Pulse Ox 08/12/16 10:38 98.8 F 81 16 95/58 98 08/12/16 08:07 16 105/59 100 08/12/16 07:00 98.7 F 75 16 105/59 100 08/12/16 04:55 97.8 F 67 16 102/70 99 08/12/16 01:36 97 08/12/16 01:17 98.4 F 77 15 110/50 100 08/12/16 00:50 16 117/63 08/12/16 00:45 67 16 117/63 100 08/12/16 00:15 71 16 99/59 97 08/11/16 23:08 71 16 120/59 97 08/11/16 21:39 98.2 F 67 16 111/48 98 Intake and Output 08/11/16 08/12/16 08/12/16 23:59 07:59 15:59 Output Total 600 / 600 Balance -600 / -600 Output: Catheter 600 / 600 Other: Weight 45.359 kg Height: 5' Weight: 100# BMI = 19.5 NPO (# of Hours): MNoc - HEENT Pupil (Motor): Pupils equal, EOMI Mallampati: II Teeth: Edentulous Oral Opening: Greater than 3 - EXPRESSIVE ART THERAPIST LOC: Oriented, Confused EXPRESSIVE ART THERAPIST Motor: Normal RUE, Normal LUE, Normal RLE, Normal Face, Deficit LLE EXPRESSIVE ART THERAPIST Sensory: Normal: RUE, LUE, RLE, Face, Deficit: LLE - Cardiac Rhythm: Regular Murmur: None - Pulmonary Breath Sounds: bilateral Rales, bilateral Rhonchi Respiratory Effort: Symmetrical Anesthesia Assess/Plan ASA Score: 4 (Schizophrenia/Psychiatric disorders, Steroid dependent COPD, HTN) Modified [place] Scale for Level of Consciousness: Cooperative, oriented, and tranquil Anesthetic Plan: General Monitoring Plan: Standard Monitors Recovery Plan: PACU Anes Supervising Prov Stmt: Pt seen/evaluated, R&B Discussed, questions answered and consent obtained. Bobby Diop MD
[2016-08-12] MEDS ORDERED: *HR* Propofol 200 MG/20 ML VIAL IVP ONE (16:06)
[2016-08-12] MEDS ORDERED: *HR* FentaNYL (PF) 100 MCG/2 ML VIAL ONE (16:06)
[2016-08-12] MEDS ORDERED: *HR* Rocuronium Bromide 50 MG/5 ML VIAL ONE (16:07)
[2016-08-12] MEDS ORDERED: Dexamethasone 4 MG/ML VIAL ONE (16:07)
[2016-08-12] MEDS ORDERED: *HR* Midazolam HCl 2 MG/2 ML VIAL ONE (16:07)
[2016-08-12] MEDS ORDERED: Lidocaine -MPF 4% 5 ML AMPUL ONE (16:07)
[2016-08-12] MEDS ORDERED: Ondansetron 4 MG/2 ML VIAL ONE (16:07)
[2016-08-12] MEDS ORDERED: Lidocaine -MPF 2% 2 ML VIAL ONE (16:07)
--- NOTE | 2016-08-12 16:08 | Electrocardiograph Report ---
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
[2016-08-12] MEDS: Ipratropium/Albuterol Neb 3 ML IH SCH ×3 (16:58→23:03)
--- NOTE | 2016-08-12 17:11 | Electrocardiograph Report ---
[address] [place], [place] [address] Test Date: 2016-08-12 Pat Name: Myra Guerra Department: 114 Room: [facility] Gender: F Rn Social Work: : 1950 Requested By: Lonny Kirkpatrick Order Number: [id number] Reading MD: Irasema Rodrigez Measurements Intervals [place] Rate: 74 P: 80 MN: 154 QRS: -63 QRSD: 89 T: -85 QT: 401 QTc: 429 Interpretive Statements SINUS RHYTHM MARKED LEFT AXIS DEVIATION LOW QRS VOLTAGE IN EXTREMITY LEADS POSSIBLE ANTERIOR MYOCARDIAL INFARCTION, OF INDETERMINATE AGE MODERATE T-WAVE ABNORMALITY, CONSIDER LATERAL ISCHEMIA MODERATE T-WAVE ABNORMALITY, CONSIDER INFERIOR ISCHEMIA Electronically Signed On 08-12-2016 17:09:21 EST by Irasema Rodrigez
[2016-08-12] MEDS ORDERED: Neostigmine Methylsulfate 3 MG/3 ML SYRINGE ONE (17:17)
[2016-08-12] MEDS ORDERED: *HR* Labetalol 100 MG/20 ML MDV IVP PRN (17:20)
[2016-08-12] MEDS ORDERED: *HR* HYDROmorphone (PF) 1 MG/ML SYRINGE IVP PRN (17:20)
[2016-08-12] MEDS ORDERED: Ondansetron 4 MG/2 ML VIAL IVP ONE (17:20)
--- NOTE | 2016-08-12 18:25 | Orthopedic Operative Note ---
Date of procedure: 08/12/16 Procedure: OPERATIVE REPORT DATE OF PROCEDURE: 08/12/2016 SURGEON: Jax Ladd MD [employer] SUPERVISOR(S): There were no assistants PREOPERATIVE DIAGNOSIS: Left intertrochanteric hip fracture POSTOPERATIVE DIAGNOSIS: Left intertrochanteric hip fracture PROCEDURE: Closed reduction and medullary nailing of the left intertrochanteric hip fracture ANESTHESIA: General anesthesia PREOPERATIVE ANTIBIOTICS: 2 g of Ancef ESTIMATED BLOOD LOSS: 200 milliliters IMPLANTS: Wells gamma 3 long medullary nail, 125 degrees, 360 mm in length, 13 mm in diameter, with a 90 mm lag screw LOCAL INJECTION: None PREOPERATIVE NOTE AND INDICATIONS: Myra is a 66-year-old female who sustained a left displaced proximal femur fracture. The recommendation was for reduction and medullary nailing in order to stabilize the proximal femur, provide pain control, and facilitate nursing care. The surgical plan was discussed with the patient's brother who is the power of trust and estates attorney. The risks, benefits, alternatives, and potential complications of this procedure were discussed with the patient including injury to veins, arteries, nerves, tendons, ligaments, and bone. Also discussed were the risks of infection, bleeding, pain, blood clots, the possible need for a blood transfusion, the possible need for further procedures, heart attack, stroke, and . All of this was explained in simple terms, and the patient's brother verbalized understanding and wished to proceed. Consent was given to proceed with surgery. PROCEDURE: The patient was seen in the preoperative holding area where the identify and the consent were confirmed. The left thigh was marked. Final questions were answered. The patient was brought back to the operating room and placed supine on the operating room table. A huddle was performed with the patient and all vital surgical team members confirming patient identity, the correct procedure, and the correct operative site. And general anesthesia was administered. The patient was placed on the fracture table and the nonoperative leg was flexed, abducted, and rotated out of the way. Traction was placed as well as internal rotation on the left lower extremity and x-rays confirmed good reduction. The left lower extremity was prepped and draped in the usual sterile fashion. A surgical time out was performed immediately preceding the incision with all personnel in the operating room to confirm patient identity, the correct operative site and extremity, correct radiographic studies, availability of appropriate surgical equipment, and agreement on the planned procedure. A longitudinal incision was made and dissection proceeded through the subcutaneous tissue down to the gluteal fascia which was opened. The patient was placed on the proximal femur and driven in to the greater trochanter. The opening reamer was used. The ball-tipped guidewire was placed on the shaft of the femur and confirmed to be in good position by x-ray. The length was measured. Reaming began with a 9 mm reamer and progressed sequentially in half millimeter increments up to a 14-1/2 mm. The definitive nail was then placed in the femur but would only go half way down. It was taken out and a 15 mm reamer was passed. The definitive nail was then placed easily into the shaft of the femur. A guidewire was placed into the femoral head through the nail. The length was measured and then the reamer was ran over the guidewire. The definitive lag screw was placed and compression mode used. The locking mechanism was dynamized. X-rays confirmed good position of the hardware. 2 distal locking screws were placed in perfect [place] technique. The wounds were copiously irrigated and the deep layers closed with 0 Vicryl stitches. The skin was closed with 3-0 Vicryl followed by blaine. Sterile dressings were placed. The patient was taken off the traction table and tolerated the procedure well. The instrument, sponge, and needle counts were correct after wound closure. POST OPERATIVE PLAN: Weight Bearing: As tolerated DVT Prophylaxis: Aspirin 325 mg by mouth twice a day Activity: As tolerated with assistance Wound Care: Daily dressing changes after postoperative day 2 Pain Control: Per the primary team Perioperative antibiotic prophylaxis: 2 doses of Ancef Social work for discharge planning Follow Up: 2 weeks
--- NOTE | 2016-08-12 18:56 | Anesthesia Evaluation Post Op ---
Date of Encounter: 08/12/16 Time of Encounter: 18:53 - Vital Signs Vital Signs: Vital Signs/O2 Sat, Most Current Temp Pulse Resp BP Pulse Ox 97.4 F L 92 16 126/84 98 08/12/16 18:45 08/12/16 18:45 08/12/16 18:45 08/12/16 18:45 08/12/16 18:45 - Lungs Lungs: Clear Ascult./Percussion - Airway Airway: Non-obstructed - Cardiovascular Regular Rate - Mental Status Mental Status: Confused, Asleep with brisk response to light stimulation - Pain Pain Scale used: Unable to assess - Nausea Vomiting Nausea Vomiting: Not Present - Hydration Hydration: NPO, Keith catheter - Discharge PostOp Status: Transfer Patient to floor
[2016-08-12] MEDS: ceFAZolin 2,000 MG in D5% in Water 100 ML IVPB SCH (23:28)
[2016-08-12] MEDS: Aspirin Enteric Coated 325 MG Tablet PO SCH ×2 (23:28→23:35)
[2016-08-13] MEDS: Ipratropium/Albuterol Neb 3 ML IH SCH ×6 (03:51→23:15)
[2016-08-13 04:07] LABS: Hematocrit 27.5 % (35.3-44.9)
[2016-08-13 04:13] LABS: Hemoglobin 8.7 g/dL (11.5-15.4)
[2016-08-13 04:19] LABS: BUN/Creatinine Ratio 35 (6-26); Blood Urea Nitrogen 19 mg/dL (7-20); Calcium 8.2 mg/dL (8.6-10.8); Carbon Dioxide 19 mEq/L (19-29); Chloride 105 mEq/L (98-109); Glucose 123 mg/dL (70-99); Osmolality,Calculated 282 (280-300); Potassium 4.2 mEq/L (3.5-4.5); Sodium 134 mEq/L (136-145); eGFR For African Americans > 60 (> 60); eGFR For Non-African Americans > 60 (> 60)
[2016-08-13] MEDS: Thiamine (B-1) 100 MG TABLET PO SCH (09:48)
[2016-08-13] MEDS: Hydrocortisone Sodium Succ 100 MG/2 ML VIAL IVP SCH ×2 (09:48→16:20)
[2016-08-13] MEDS: Aspirin Enteric Coated 325 MG Tablet PO SCH ×2 (09:48→21:39)
[2016-08-13] MEDS: ceFAZolin 2,000 MG in D5% in Water 100 ML IVPB SCH (09:58)
[2016-08-13] MEDS: Budesonide/Formoterol 160/4.5 MDI IH SCH ×2 (10:04→20:24)
[2016-08-13] MEDS: *HR* HYDROmorphone (PF) 1 MG/ML SYRINGE IVP PRN ×2 (11:53→16:18)
--- NOTE | 2016-08-13 14:00 | Orthopedics Progress Note ---
Date of Encounter: 08/13/16 Time of Encounter: 13:58 - Assessment and Plan (1) Intertrochanteric fracture of left femur Current Visit: Yes Status: Acute Postoperative day #1, stable Start OT and PT Continue DVT prophylaxis Qualifiers: Encounter type: initial encounter Fracture type: closed Qualified Code(s) : S72.142A - Displaced intertrochanteric fracture of left femur, initial encounter for closed fracture Subjective Principal diagnosis: Left hip fracture Interval history: Patient is postop day #1, complaining of mild pain Left hip dressing is clean dry intact Bilateral calves soft and nontender Objective Vital signs: Vital Signs Temp Pulse Resp BP Pulse Ox 08/13/16 11:54 104/75 08/13/16 10:05 20 95 08/13/16 06:52 98.4 F 95 16 106/72 96 08/13/16 04:32 98.1 F 82 16 104/69 93 L 08/12/16 19:49 16 100 08/12/16 19:11 98.6 F 87 16 93/61 100 08/12/16 18:55 88 16 110/70 97 08/12/16 18:45 97.4 F L 92 16 126/84 98 08/12/16 18:35 84 14 106/73 99 08/12/16 18:25 79 14 119/61 100 08/12/16 18:15 98.4 F 81 16 114/63 100 Intake and Output 08/12/16 08/13/16 08/13/16 23:59 07:59 15:59 Intake Total 100 / 100 600 / 600 Output Total 400 / 400 100 / 100 200 / 200 Balance -400 / -400 0 / 0 400 / 400 Intake: IV Fluids 100 / 100 Ancef 2,000 MG In 100 / 100 Dextrose 5% 100 ML @ 200 mls/hr IVPB Q8HR JOSELYN Rx#: [id number] Oral 600 / 600 Output: Urine 200 / 200 Estimated Blood Loss 200 / 200 Urine Amount (Catheter) 200 / 200 Catheter 100 / 100 Other: Meal Lunch Percent of Meal Consumed 50% Incision: clean and dry - Labs CBC & BMP: 08/13/16 03:37 08/13/16 03:37 Labs: Abnormal lab results Hgb 8.7 g/dL (11.5-15.4) L D 08/13/16 03:37 Hct 27.5 % (35.3-44.9) L 08/13/16 03:37 MCH 27.0 pg (28.0-33.3) L 08/12/16 04:46 RDW 14.8 % (11.5-14.5) H 08/12/16 04:46 PT 13.0 Seconds (9.4-12.1) H 08/11/16 21:52 Sodium 134 mEq/L (136-145) L 08/13/16 03:37 Creatinine 0.55 mg/dL (0.57-1.11) L 08/13/16 03:37 BUN/Creatinine Ratio 35 (6-26) H 08/13/16 03:37 Glucose 123 mg/dL (70-99) H 08/13/16 03:37 Calcium 8.2 mg/dL (8.6-10.8) L 08/13/16 03:37 Magnesium 1.5 mg/dL (1.6-2.6) L 08/12/16 04:46 Serum Total Protein 5.8 g/dL (6.0-8.3) L 08/12/16 04:46 Albumin 2.9 g/dL (3.5-5.0) L 08/12/16 04:46 Albumin/Globulin Ratio 1.0 (1.1-2.2) L 08/12/16 04:46 - VTE Documentation of Mechanical Device: Intermittent pneumatic compression device Consult Discharge Plan - Plan Referrals: Franky Hackett MD [Primary Care Provider] -
--- NOTE | 2016-08-13 17:56 | Internal Med Progress Note ---
Date of Encounter: 08/13/16 Time of Encounter: 17:53 - Assessment and plan (1) Intertrochanteric fracture of left femur Current Visit: Yes Status: Acute Assessment and plan: POD #1, stable H&H 8.7 today, asymptomatic. We will continue to monitor CBC daily. Orthopedics following. Continue DVT prophylaxis, start physical therapy. Patient will need to be discharged to inpatient rehabilitation according to PT recommendation. await social work for placement. Qualifiers: Encounter type: initial encounter Fracture type: closed Qualified Code(s) : S72.142A - Displaced intertrochanteric fracture of left femur, initial encounter for closed fracture (2) COPD (chronic obstructive pulmonary disease) Current Visit: Yes Status: Chronic Assessment and plan: Stable, continue home medications. Qualifiers: COPD type: emphysema Emphysema type: panlobular Qualified Code(s): J43.1 - Panlobular emphysema (3) DVT prophylaxis Current Visit: No Status: Acute (4) Steroid long-term use Current Visit: Yes Status: Acute Assessment and plan: unclear reason, will stop hydroxortisone and start prednisone daily, if no strong indication, will taper it off for now will continue and add megace for anorexia. (5) Hypertension Current Visit: No Status: Chronic Assessment and plan: will restart home meds. Qualifiers: Hypertension type: essential hypertension Qualified Code(s): I10 - Essential (primary) hypertension - Time Spent With Patient 25 - 35 minutes - Subjective Interval history: denies any complains. she says patrick does not want to go to rehab. post op day #1, stable, ortho following. - Constitutional Vitals: Temp Pulse Resp BP Pulse Ox 98.5 F 82 16 114/83 95 08/13/16 14:11 08/13/16 16:17 08/13/16 14:11 08/13/16 16:17 08/13/16 14:11 General appearance: Present: A&O X 1, disheveled. Absent: cooperative, answers questions appropriately Exam: HEENT: Atraumatic, Normocephaly, Mucus Membranes Moist Neck: No JVD, Normal carotid pulses Cardiac: Reg Rate and Rhythm, Normal S1 and S2, No Murmur Lungs: Normal Breath Sounds, No Wheeze, Rales, Rhonchi Neuro: Alert and responsive, No focal deficits noted Abdomen: Soft, Non-Tender Skin: No rashes noted on visualized skin Musculoskeletal: No Chest Wall Tenderness Extremities: No Clubbing, No Cyanosis, No Edema, Normal Pulses Internal Medicine: Result - Labs CBC & Chem 7: 08/13/16 03:37 08/13/16 03:37 Labs: Short CBC 08/13/16 Range/Units 03:37 Hgb 8.7 L D (11.5-15.4) g/dL Hct 27.5 L (35.3-44.9) % BMP 08/13/16 03:37 Sodium 134 L Potassium 4.2 Chloride 105 Carbon Dioxide 19 BUN 19 Creatinine 0.55 L Glucose 123 H Calcium 8.2 L Cardiac Enzymes 08/12/16 Range/Units 21:52 Troponin I 0.00 (0-0.03) ng/mL - ABG Interpretation ABG results: PT/INR, D-dimer PT 13.0 Seconds (9.4-12.1) H 08/11/16 21:52 - VTE Documentation of Mechanical Device: Intermittent pneumatic compression device Consult Discharge Plan - Plan Referrals: Franky Hackett MD [Primary Care Provider] -
[2016-08-13] MEDS: Mirtazapine 15 MG TABLET PO SCH (21:39)
[2016-08-14 03:46] LABS: Hematocrit 24.8 % (35.3-44.9)
[2016-08-14 04:04] LABS: BUN/Creatinine Ratio 38 (6-26); Blood Urea Nitrogen 23 mg/dL (7-20); Calcium 8.6 mg/dL (8.6-10.8); Carbon Dioxide 23 mEq/L (19-29); Chloride 106 mEq/L (98-109); Glucose 128 mg/dL (70-99); Osmolality,Calculated 289 (280-300); Potassium 4.3 mEq/L (3.5-4.5); Sodium 137 mEq/L (136-145); eGFR For African Americans > 60 (> 60); eGFR For Non-African Americans > 60 (> 60)
[2016-08-14] MEDS: Ipratropium/Albuterol Neb 3 ML IH SCH ×5 (04:54→20:08)
[2016-08-14] MEDS: Budesonide/Formoterol 160/4.5 MDI IH SCH ×2 (08:06→20:08)
[2016-08-14] MEDS: ARIPiprazole 10 MG TABLET PO SCH (08:43)
[2016-08-14] MEDS: Aspirin Enteric Coated 325 MG Tablet PO SCH ×2 (08:44→20:19)
[2016-08-14] MEDS: predniSONE 5 MG TABLET PO SCH (08:45)
[2016-08-14] MEDS: Acetaminophen 325 MG TABLET PO PRN ×2 (08:46→18:20)
[2016-08-14] MEDS: Megestrol Acetate 400 MG/10 ML UDC PO SCH (08:46)
[2016-08-14] MEDS: Thiamine (B-1) 100 MG TABLET PO SCH (08:47)
[2016-08-14] MEDS ORDERED: (Umeclidinium Bromide [Incruse Ellipta] 62.5 MCG) IH SCH (09:00)
--- NOTE | 2016-08-14 12:35 | Orthopedics Progress Note ---
Date of Encounter: 08/14/16 Time of Encounter: 12:34 - Assessment and Plan (1) Intertrochanteric fracture of left femur Current Visit: Yes Status: Acute Postoperative day #2, stable Start OT and PT Continue DVT prophylaxis D/c planning to rehab Qualifiers: Encounter type: initial encounter Fracture type: closed Qualified Code(s) : S72.142A - Displaced intertrochanteric fracture of left femur, initial encounter for closed fracture Subjective Principal diagnosis: Left hip fracture Interval history: Patient is postop day #1, with no new complaints Left hip dressing is clean dry intact Bilateral calves soft and nontender Objective Vital signs: Vital Signs Temp Pulse Resp BP Pulse Ox 08/14/16 11:00 97.9 F 75 16 104/53 99 08/14/16 10:53 18 89 L 08/14/16 08:06 18 99 08/14/16 06:32 98.7 F 96 18 108/53 96 08/14/16 04:52 97.9 F 08/14/16 04:19 78 16 104/59 95 08/13/16 23:54 98.1 F 100 14 96/56 92 L 08/13/16 20:36 98.1 F 72 14 89/53 98 08/13/16 20:24 15 98 08/13/16 16:17 82 114/83 08/13/16 14:11 98.5 F 91 16 107/58 95 Intake and Output 08/13/16 08/14/16 08/14/16 23:59 07:59 15:59 Intake Total 100 / 100 100 / 100 Balance 100 / 100 100 / 100 Intake: Oral 100 / 100 100 / 100 Other: # Voids 1 1 # Urine Diapers 1 Incision: clean and dry - Labs CBC & BMP: 08/14/16 03:35 08/14/16 03:35 Labs: Abnormal lab results Hgb 8.0 g/dL (11.5-15.4) L 08/14/16 03:35 Hct 24.8 % (35.3-44.9) L 08/14/16 03:35 MCH 27.0 pg (28.0-33.3) L 08/12/16 04:46 RDW 14.8 % (11.5-14.5) H 08/12/16 04:46 PT 13.0 Seconds (9.4-12.1) H 08/11/16 21:52 BUN 23 mg/dL (7-20) H 08/14/16 03:35 BUN/Creatinine Ratio 38 (6-26) H 08/14/16 03:35 Glucose 128 mg/dL (70-99) H 08/14/16 03:35 Magnesium 1.5 mg/dL (1.6-2.6) L 08/12/16 04:46 Serum Total Protein 5.8 g/dL (6.0-8.3) L 08/12/16 04:46 Albumin 2.9 g/dL (3.5-5.0) L 08/12/16 04:46 Albumin/Globulin Ratio 1.0 (1.1-2.2) L 08/12/16 04:46 - VTE Documentation of Mechanical Device: Intermittent pneumatic compression device Consult Discharge Plan - Plan Referrals: Franky Hackett MD [Primary Care Provider] -
--- NOTE | 2016-08-14 18:43 | Internal Med Progress Note ---
Date of Encounter: 08/14/16 Time of Encounter: 18:41 - Assessment and plan (1) Intertrochanteric fracture of left femur Current Visit: Yes Status: Acute Assessment and plan: POD #2, stable H&H 8.0 today, asymptomatic. We will continue to monitor CBC daily. Orthopedics following. Continue DVT prophylaxis, Pt/OT Patient will need to be discharged to inpatient rehabilitation according to PT recommendation. await social work for placement. Qualifiers: Encounter type: initial encounter Fracture type: closed Qualified Code(s) : S72.142A - Displaced intertrochanteric fracture of left femur, initial encounter for closed fracture (2) COPD (chronic obstructive pulmonary disease) Current Visit: Yes Status: Chronic Assessment and plan: Stable, continue home medications. Qualifiers: COPD type: emphysema Emphysema type: panlobular Qualified Code(s): J43.1 - Panlobular emphysema (3) DVT prophylaxis Current Visit: No Status: Acute (4) Steroid long-term use Current Visit: Yes Status: Acute Assessment and plan: unclear reason, will stop hydroxortisone and has been started on prednisone daily, if no strong indication, will taper it off for now will continue and add megace for anorexia. (5) Hypertension Current Visit: No Status: Chronic Assessment and plan: will restart home meds. Qualifiers: Hypertension type: essential hypertension Qualified Code(s): I10 - Essential (primary) hypertension - Time Spent With Patient 25 - 35 minutes - Subjective Interval history: denies any complains. post op day #2, stable, ortho following. - Constitutional Vitals: Temp Pulse Resp BP Pulse Ox 97.6 F 81 20 107/56 99 08/14/16 14:26 08/14/16 14:26 08/14/16 15:28 08/14/16 14:08/14/16 15:28 General appearance: Present: A&O X 1, disheveled. Absent: cooperative, answers questions appropriately Exam: Exam: HEENT: Atraumatic, Normocephaly, Mucus Membranes Moist Neck: No JVD, Normal carotid pulses Cardiac: Reg Rate and Rhythm, Normal S1 and S2, No Murmur Lungs: Normal Breath Sounds, No Wheeze, Rales, Rhonchi Neuro: Alert and responsive, No focal deficits noted Abdomen: Soft, Non-Tender Skin: No rashes noted on visualized skin Musculoskeletal: No Chest Wall Tenderness Extremities: No Clubbing, No Cyanosis, No Edema, Normal Pulses Internal Medicine: Result - Labs CBC & Chem 7: 08/14/16 03:35 08/14/16 03:35 Labs: Short CBC 08/14/16 Range/Units 03:35 Hgb 8.0 L (11.5-15.4) g/dL Hct 24.8 L (35.3-44.9) % BMP 08/14/16 03:35 Sodium 137 Potassium 4.3 Chloride 106 Carbon Dioxide 23 BUN 23 H Creatinine 0.61 Glucose 128 H Calcium 8.6 - ABG Interpretation ABG results: PT/INR, D-dimer PT 13.0 Seconds (9.4-12.1) H 08/11/16 21:52 - VTE Documentation of Mechanical Device: Intermittent pneumatic compression device Consult Discharge Plan - Plan Referrals: Franky Hackett MD [Primary Care Provider] -
[2016-08-14] MEDS: Mirtazapine 15 MG TABLET PO SCH (20:19)
[2016-08-14] MEDS: *HR* OxyCODONE Immed Rel 5 MG TABLET PO PRN (22:01)
[2016-08-15] MEDS: Ipratropium/Albuterol Neb 3 ML IH SCH ×5 (04:34→20:20)
[2016-08-15 05:07] LABS: BUN/Creatinine Ratio 33 (6-26); Blood Urea Nitrogen 20 mg/dL (7-20); Calcium 8.3 mg/dL (8.6-10.8); Carbon Dioxide 24 mEq/L (19-29); Chloride 109 mEq/L (98-109); Glucose 91 mg/dL (70-99); Osmolality,Calculated 292 (280-300); Potassium 3.7 mEq/L (3.5-4.5); Sodium 140 mEq/L (136-145); eGFR For African Americans > 60 (> 60); eGFR For Non-African Americans > 60 (> 60)
[2016-08-15 05:16] LABS: Hematocrit 22.9 % (35.3-44.9); Hemoglobin 7.3 g/dL (11.5-15.4)
[2016-08-15] MEDS: *HR* OxyCODONE Immed Rel 5 MG TABLET PO PRN (05:41)
--- NOTE | 2016-08-15 07:19 | Orthopedics Progress Note ---
Date of Encounter: 08/15/16 Time of Encounter: 07:17 - Assessment and Plan (1) Hip fracture, left Current Visit: Yes Status: Acute Qualifiers: Qualified Code(s): S72.002A - Fracture of unspecified part of neck of left femur, initial encounter for closed fracture Subjective Principal diagnosis: Left hip fracture Interval history: S: Resting in bed. No complaints. Quite grumpy this morning. O: Afeb/VSS; Left thigh dressing changed. Wounds are clean, dry, and intact. No significant grimace with passive movement of the hip. She will not participate in a neurologic exam. A: Post op day 3 after left hip nail. P: Continue with therapy, WBAT, pain control, and aspirin. Transfuse 1 unit for acute blood loss anemia from surgery. Orthopedically stable for discharge to rehab. Follow up with me in 2 weeks from day of surgery for staple removal and x-rays. Objective Vital signs: Vital Signs Temp Pulse Resp BP Pulse Ox 08/15/16 06:22 98.8 F 85 18 122/74 99 08/15/16 05:14 97.9 F 77 110/67 94 L 08/15/16 00:21 98.6 F 16 120/75 94 L 08/14/16 22:19 97 08/14/16 20:29 98.4 F 79 16 92/53 97 08/14/16 20:08 18 97 08/14/16 15:28 20 99 08/14/16 14:26 97.6 F 81 16 107/56 95 08/14/16 11:00 97.9 F 75 16 104/53 99 08/14/16 10:53 18 89 L 08/14/16 08:06 18 99 Intake and Output 08/14/16 08/14/16 08/15/16 15:59 23:59 07:59 Intake Total 350 / 350 100 / 100 200 / 200 Output Total 200 / 200 Balance 150 / 150 100 / 100 200 / 200 Intake: Oral 350 / 350 100 / 100 200 / 200 Output: Urine 200 / 200 Other: # Voids 1 1 # Urine Diapers 1 1 - Labs CBC & BMP: 08/15/16 04:47 08/15/16 04:47 Labs: Abnormal lab results Hgb 7.3 g/dL (11.5-15.4) L 08/15/16 04:47 Hct 22.9 % (35.3-44.9) L 08/15/16 04:47 MCH 27.0 pg (28.0-33.3) L 08/12/16 04:46 RDW 14.8 % (11.5-14.5) H 08/12/16 04:46 PT 13.0 Seconds (9.4-12.1) H 08/11/16 21:52 BUN/Creatinine Ratio 33 (6-26) H 08/15/16 04:47 Calcium 8.3 mg/dL (8.6-10.8) L 08/15/16 04:47 Magnesium 1.5 mg/dL (1.6-2.6) L 08/12/16 04:46 Serum Total Protein 5.8 g/dL (6.0-8.3) L 08/12/16 04:46 Albumin 2.9 g/dL (3.5-5.0) L 08/12/16 04:46 Albumin/Globulin Ratio 1.0 (1.1-2.2) L 08/12/16 04:46 - VTE Documentation of Mechanical Device: Intermittent pneumatic compression device Consult Discharge Plan - Plan Referrals: Franky Hackett MD [Primary Care Provider] -
--- NOTE | 2016-08-15 07:22 | Orthopedics Progress Note ---
Date of Encounter: 08/15/16 Time of Encounter: 07:20 - Assessment and Plan (1) Hip fracture, left Current Visit: Yes Status: Acute Qualifiers: Qualified Code(s): S72.002A - Fracture of unspecified part of neck of left femur, initial encounter for closed fracture Subjective Principal diagnosis: Left hip fracture Interval history: S: Resting in bed. No complaints. Quite grumpy this morning. O: Afeb/VSS; Left thigh dressing changed. Wounds are clean, dry, and intact. No significant grimace with passive movement of the hip. She will not participate in a neurologic exam. A: Post op day 3 after left hip nail. P: Continue with therapy, WBAT, pain control, and aspirin. Transfuse 1 unit for acute blood loss anemia from surgery. Orthopedically stable for discharge to rehab. Follow up with me in 2 weeks from day of surgery for staple removal and x-rays. Objective Vital signs: Vital Signs Temp Pulse Resp BP Pulse Ox 08/15/16 06:22 98.8 F 85 18 122/74 99 08/15/16 05:14 97.9 F 77 110/67 94 L 08/15/16 00:21 98.6 F 16 120/75 94 L 08/14/16 22:19 97 08/14/16 20:29 98.4 F 79 16 92/53 97 08/14/16 20:08 18 97 08/14/16 15:28 20 99 08/14/16 14:26 97.6 F 81 16 107/56 95 08/14/16 11:00 97.9 F 75 16 104/53 99 08/14/16 10:53 18 89 L 08/14/16 08:06 18 99 Intake and Output 08/14/16 08/14/16 08/15/16 15:59 23:59 07:59 Intake Total 350 / 350 100 / 100 200 / 200 Output Total 200 / 200 Balance 150 / 150 100 / 100 200 / 200 Intake: Oral 350 / 350 100 / 100 200 / 200 Output: Urine 200 / 200 Other: # Voids 1 1 # Urine Diapers 1 1 - Labs CBC & BMP: 08/15/16 04:47 08/15/16 04:47 Labs: Abnormal lab results Hgb 7.3 g/dL (11.5-15.4) L 08/15/16 04:47 Hct 22.9 % (35.3-44.9) L 08/15/16 04:47 MCH 27.0 pg (28.0-33.3) L 08/12/16 04:46 RDW 14.8 % (11.5-14.5) H 08/12/16 04:46 PT 13.0 Seconds (9.4-12.1) H 08/11/16 21:52 BUN/Creatinine Ratio 33 (6-26) H 08/15/16 04:47 Calcium 8.3 mg/dL (8.6-10.8) L 08/15/16 04:47 Magnesium 1.5 mg/dL (1.6-2.6) L 08/12/16 04:46 Serum Total Protein 5.8 g/dL (6.0-8.3) L 08/12/16 04:46 Albumin 2.9 g/dL (3.5-5.0) L 08/12/16 04:46 Albumin/Globulin Ratio 1.0 (1.1-2.2) L 08/12/16 04:46 - VTE Documentation of Mechanical Device: Intermittent pneumatic compression device Consult Discharge Plan - Plan Additional Instructions: [facility] DISCHARGE INSTRUCTIONS Dr. Ladd PROCEDURE PERFORMED Reduction and fixation of left hip. Incision care -Daily dressing changes to the right hip with dry gauze and either paper tape or medipore tape. -Avoid soaking wound in water (no hot tubs, bathtubs, swimming pools). -May shower after 2 weeks from surgery date. Carefully wash incision with soap and water. Gently pat it dry. Don't rub the incision, or apply creams or lotions. Sit on a shower stool when showering to keep from falling. Weight bearing status -Weightbearing as tolerated to the bilateral lower extremity. Medications -Pain medication per the discharging medical doctor -Enteric coated aspirin 325 mg by mouth twice per day for 28 days from the date of the surgery. Other -Knee high YESSY hose 23 hours per day -Consult physical and occupational therapy for ambulation. -Up to chair with assistance at least twice per day. Follow-up with Dr. Ladd at the office 2 weeks from the surgery date for a post operative evaluation. Call the office at [phone] to schedule appointment. Referrals: Franky Hackett MD [Primary Care Provider] -
[2016-08-15] MEDS: Budesonide/Formoterol 160/4.5 MDI IH SCH ×2 (07:43→20:20)
[2016-08-15] MEDS: ARIPiprazole 10 MG TABLET PO SCH (09:17)
[2016-08-15] MEDS: predniSONE 5 MG TABLET PO SCH (09:18)
[2016-08-15] MEDS: Aspirin Enteric Coated 325 MG Tablet PO SCH (09:18)
[2016-08-15] MEDS: Thiamine (B-1) 100 MG TABLET PO SCH (09:18)
[2016-08-15] MEDS: Megestrol Acetate 400 MG/10 ML UDC PO SCH (09:26)
--- NOTE | 2016-08-15 10:11 | Discharge Summary ---
Date of Encounter: 08/15/16 Time of Encounter: 10:07 - Discharge Diagnosis (1) Intertrochanteric fracture of left femur Priority: Primary Status: Acute Qualifiers: Encounter type: initial encounter Fracture type: closed Qualified Code(s) : S72.142A - Displaced intertrochanteric fracture of left femur, initial encounter for closed fracture (2) COPD (chronic obstructive pulmonary disease) Priority: Secondary Status: Chronic Qualifiers: COPD type: emphysema Emphysema type: panlobular Qualified Code(s): J43.1 - Panlobular emphysema (3) DVT prophylaxis Priority: Secondary Status: Acute (4) Steroid long-term use Priority: Secondary Status: Acute (5) Hypertension Priority: Secondary Status: Chronic Qualifiers: Hypertension type: essential hypertension Qualified Code(s): I10 - Essential (primary) hypertension - Discharge Medications Prescriptions: OxyCODONE Immed Rel [Roxicodone 5 MG] 5 mg PO Q4HR PRN #30 tablet PRN Reason: Moderate Pain (4-6) Home Medications: Budesonide/Formoterol 160/4.5 [Symbicort] 2 puff IH BIDR 30 Days 04/10/15 [Rx] Benztropine [Cogentin] 1 mg PO QID #120 tablet 05/22/15 [Rx] Mirtazapine [Remeron] 15 mg PO HS #30 tablet 05/22/15 [Rx] Sertraline [Zoloft] 150 mg PO DAILY 12/07/15 [History] Umeclidinium [place] [Incruse Ellipta] 62.5 mcg IH DAILY 12/07/15 [History] Montelukast [Singulair] 10 mg PO DAILY tablet 12/11/15 [Rx] Omeprazole [PriLOSEC] 20 mg PO BIDAC capsule 12/11/15 [Rx] Albuterol Sulfate [Albuterol Inhaler] 1 puff IH Q4HR PRN 01/12/16 [History] Albuterol Neb [Proventil Neb] 2.5 mg IH Q2H PRN #0 inhsol 01/16/16 [Rx] Acetylcysteine [E-Ykayvs-x-Cysteine] 600 mg PO BIDWM 02/04/16 [History] Aripiprazole [Abilify] 15 mg PO DAILY MDD Start 02-09-16. 02/04/16 [History] Aspirin 81 mg PO DAILY tab.chew 02/08/16 [Rx] Atorvastatin [Lipitor] 40 mg PO HS #30 tablet 02/08/16 [Rx] ClonazePAM [Klonopin] 1 mg PO TID PRN 30 Days 02/08/16 [Rx] Metoprolol [Lopressor] 12.5 mg PO BID #30 tablet 02/08/16 [Rx] Ipratropium/Albuterol Neb [Duoneb] 3 ml IH Q6HR PRN #30 vial.neb 03/29/16 [Rx] Guaifenesin [Mucinex] 1,200 mg PO BID 08/12/16 [History] Lisinopril 2.5 mg PO DAILY 08/12/16 [History] Magnesium Hydroxide [Milk of Magnesia] 30 ml PO Q4H PRN 08/12/16 [History] PredniSONE [Spike] 5 mg PO DAILY 08/12/16 [History] Theophylline Anhydrous [Maximino-24] 300 mg PO DAILY 08/12/16 [History] OxyCODONE Immed Rel [Roxicodone 5 MG] 5 mg PO Q4HR PRN #30 tablet 08/15/16 [Rx] Allergies/Adverse Reactions: Allergies morphine Allergy (Verified 01/12/16 11:22) Anaphylaxis Date of admission: 08/12/16 13:00 Primary care physician: Franky Hackett MD Consults: 08/12/16 18:13 Consult to Occupational Therapy [CONS] Routine Comment: Evaluate, develop and implement POC Consult to Physical Therapy [CONS] Routine Comment: Evaluate, develop and implement POC Consult to Shock Absorber Installer [CONS] Routine Reason for SW Consult: post -op hip fracture 08/15/16 07:00 Consult to Invasive Line Access Team [CONS] Routine Reason for Consult: IV Line Type: EPIV Discharging clinician: Sheila Pirtchard Anticipated date of discharge: 08/15/16 - Patient Status Disposition: Transfer Inpatient Rehab Fac Condition: Fair Functional capacity at discharge: uses cane/walker Overall status at discharge: patient is progressing back to baseline - Discharge Instructions Follow Up With: Franky Hackett MD [Primary Care Provider] - Additional Instructions: [facility] DISCHARGE INSTRUCTIONS Dr. Ladd PROCEDURE PERFORMED Reduction and fixation of left hip. Incision care -Daily dressing changes to the right hip with dry gauze and either paper tape or medipore tape. -Avoid soaking wound in water (no hot tubs, bathtubs, swimming pools). -May shower after 2 weeks from surgery date. Carefully wash incision with soap and water. Gently pat it dry. Don't rub the incision, or apply creams or lotions. Sit on a shower stool when showering to keep from falling. Weight bearing status -Weightbearing as tolerated to the bilateral lower extremity. Medications -Pain medication per the discharging medical doctor -Enteric coated aspirin 325 mg by mouth twice per day for 28 days from the date of the surgery. Other -Knee high YESSY hose 23 hours per day -Consult physical and occupational therapy for ambulation. -Up to chair with assistance at least twice per day. Follow-up with Dr. Ladd at the office 2 weeks from the surgery date for a post operative evaluation. Call the office at [phone] to schedule appointment. - Diet and Activity Activity: as per physical therapy Diet: advance to your usual diet Interval History: Ms. Guerra is a 66 year old [facility] and sustaining hip injury. Workup in the ER revealed patient to have a hip fracture on the left. She was subsequently admitted to hospitalist service with an orthopedic consult. She does have a history of psychiatric disorder, schizophrenia, and also has some underlying dementia. I reviewed her CODE STATUS at her [facility] which is confirmed DNR CC arrest. cardio was consulted for Pre-operative cardiovascular risk stratification for surgery of left displaced intertrochanteric hip fracture. EKG reviewed--significant changes noted compared to prior. Diffuse ST depression and inversion noted. Pt is a poor historian, confused. Pt denies chest pain. Troponins negative x 2. Echo resulted--EF preserved 60-65%, no wall motion abnormalities noted. Mild diastolic dysfunction. There was a possible PFO left to right shunting with color doppler. Small anterior pericardial effusion without evidence of tamponade. No further cardiac work-up necessary as per cardiology. Pt is acceptable moderate risk from a cardiac standpoint to proceed with hip surgery. she underwent Closed reduction and medullary nailing of the left intertrochanteric hip fracture with ortho. post op care was managed by orthopedics. she remained stable, bedside PT/OT was done. she received 1 unit of PRBC given drop in h/h after surgery. she is being dc to rehab in stable condition today adn will f/u with ortho as OP. Hospital course: Ms. Guerra is a 66 year old female Time spent discussing smoking cessation with patient: more than 10 minutes - Time Spent with Patient Total time spent providing and/or coordinating discharge services: Greater than 30 minutes - Constitutional Vitals: Temp Pulse Resp BP Pulse Ox 98.1 F 93 18 106/72 98 08/15/16 08:12 08/15/16 08:12 08/15/16 08:12 08/15/16 08:12 08/15/16 08:12 General appearance: Present: A&O X 1, disheveled. Absent: cooperative, answers questions appropriately Exam: HEENT: Atraumatic, Normocephaly, Mucus Membranes Moist Neck: No JVD, Normal carotid pulses Cardiac: Reg Rate and Rhythm, Normal S1 and S2, No Murmur Lungs: Normal Breath Sounds, No Wheeze, Rales, Rhonchi Neuro: Alert and responsive, No focal deficits noted Abdomen: Soft, Non-Tender Skin: No rashes noted on visualized skin Musculoskeletal: No Chest Wall Tenderness Extremities: No Clubbing, No Cyanosis, No Edema, Normal Pulses - VTE Documentation of Mechanical Device: Intermittent pneumatic compression device
[2016-08-15] MEDS ORDERED: 0.9 % Sodium Chloride 250 ML ONE (13:24)
[2016-08-15 16:26] VITALS: BP 146/80
== END 2016-08-15 20:30 | DRG 480 ==
LOC: 3NENU 21:37 → EMEROO 21:37 → 3NENU 08-12 00:52 → SUATTDRO 08-12 13:00
PROVIDERS: ADMIT Family Medicine; ATTEND Internal Medicine Endocrinology, Diabetes & Metabolism